=== PATIENT | female | born 1990 | race Caucasian/White ===

== ENCOUNTER 2025-07-28 19:22 | Emergency (ER) | payer OTHER, BC, MEDICAID ==
[~2025-07-28] VITALS: Ht 160 cm; Wt 70.0 kg
[2025-07-28 19:35] VITALS: BP 111/71; PULSE 77; RESP 18; TEMP 98.3; O2SAT 99
[2025-07-28] MEDS: LIDOCAINE 5% PATCH TOP SCH (19:58)
[2025-07-28] MEDS: KETOROLAC 15MG/ML VIAL IM ONE (19:59)
== END 2025-07-28 20:20 | disposition home or self-care (01) ==
LOC: ER 19:22
DX: S16.1XXA Strain of muscle, fascia and tendon at neck level, initial encounter (principal); J45.909 Unspecified asthma, uncomplicated; Z88.1 Allergy status to other antibiotic agents; V43.62XA Car passenger injured in collision with other type car in traffic accident, initial encounter; Y92.410 Unspecified street and highway as the place of occurrence of the external cause; Y92.89 Other specified places as the place of occurrence of the external cause; Y99.8 Other external cause status
CPT/HCPCS: 99283; 81025; 96372; J1885